=== PATIENT | male | born 1955 | race Caucasian/White ===

== ENCOUNTER → 2019-11-18 | Outpatient (CLI) | payer OTHER ==
[~2019-11-18] MED LIST: HUMALOG100 UNIT/1 SUBQ; LEVEMIR100 UNIT/2 SUBQ
== END ==
LOC: SJCVC 10:07
PROVIDERS: ATTEND Internal Medicine Cardiovascular Disease
DX: R07.9 Chest pain, unspecified (principal); E13.9 Other specified diabetes mellitus without complications; I42.9 Cardiomyopathy, unspecified; I10 Essential (primary) hypertension; E78.5 Hyperlipidemia, unspecified; Z79.899 Other long term (current) drug therapy; Z87.891 Personal history of nicotine dependence

== ENCOUNTER → 2019-11-18 | Outpatient (CLI) | payer OTHER ==
--- NOTE | 2019-11-18 09:29 | 2DMMODE ---
[facility] [place] [address] 2 D/M-MODE ECHOCARDIOGRAM Name: DL GRAYSON Room #: REG MEHDI Demarco#: [id number] Admission: 11/18/19 Attend Phys: Physician not on staff Discharge: Date of : 53 Report #: [id number] THIS REPORT FOR: cc: FAM - No family physician/PCP FAM - No family physician/PCP Paramjit Martini MD [facility] ~ APPROVED REPORT Study performed: 11/18/2019 08:45:26 EXAM: Comprehensive 2D, Doppler, and color-flow Echocardiogram Patient Location: Out-Patient Status: routine BSA: 1.96 HR: 77 bpm BP: 140/100 mmHg Rhythm: NSR Other Information Study Quality: Good Indications Atherosclerotic heart disease. Chest pains, short of breath. 2D Dimensions RVDd: 37.34 mm IVSd: 12.91 (7-11mm) LVOT Diam: 20.23 (18-24mm) LVDd: 53.79 mm PWd: 10.25 (7-11mm) Ascending Ao: 32.75 (22-36mm) LVDs: 46.11 (25-40mm) Aortic Root: 35.76 mm Volumes Left Atrial Volume (Systole) Single Plane 4CH: 40.55 mL Single Plane 2CH: 55.43 mL LA ESV Index: 28.00 mL/m2 Aortic Valve AoV Peak Dalton.: 1.65 m/s AO Peak Gr.: 10.84 mmHg LVOT Max P.28 mmHg AO Mean Gr.: 6.34 mmHg AO V2 Mean: 1.23 m/s LVOT Max V: 0.75 m/s AO V2 VTI: 32.53 cm [facility] [address] [place] [address] 2 D/M-MODE ECHOCARDIOGRAM Name: KENAN,DAVID Room #: REG [facility]#: [id number] Admission: 11/18/19 Attend Phys: Physician not on s Discharge: Date of : 53 Report #: [id number] CANDY Vmax: 1.47 cm2 Mitral Valve E/A Ratio: 1.6 MV Decel. Time: 132.60 ms MV E Max Dalton.: 0.78 m/s MV A Dalton.: 0.50 m/s MV PHT: 38.45 ms IVRT: 86.51 ms Pulmonary Valve PV Peak Dalton.: 0.76 m/s PV Peak Gr.: 2.30 mmHg Pulmonary Vein P Vein S: 0.30 m/s P Vein D: 0.55 m/s P Vein S/D Ratio: 0.55 Tricuspid Valve RAP Estimate: 10.00 mmHg Left Ventricle The left ventricle is normal size. Regional wall motion abnormalities are noted. Mild septal hypertrophy is present. Left ventricular systolic function is moderate to severely decreased.worse inapical segment LVEF is 30%. Moderate diastolic dysfunction is present. Right Ventricle The right ventricle is normal size. Right ventricle is mildly hypokinetic. Atria The left atrium size is normal. The right atrium size is normal. Aortic Valve Aortic valve is moderately calcified. Mild aortic regurgitation. Mild to moderate aortic stenosis. CANDY by continuity equation is 1.5cm2. Mitral Valve The mitral valve is normal in structure. Mild mitral regurgitation. Tricuspid Valve [facility] [address] [place] [address] 2 D/M-MODE ECHOCARDIOGRAM Name: DL GRAYSON Room #: REG [facility].#: [id number] Admission: 11/18/19 Attend Phys: Physician not on s Discharge: Date of : 53 Report #: [id number] The tricuspid valve is normal in structure. Trace tricuspid regurgitation. Unable to assess PA pressure. Pulmonic Valve The pulmonary valve is normal in structure. Trace pulmonic regurgitation. Great Vessels The ascending aorta is normal in size. IVC is mildly dilated and collapses <50% with inspiration. Pericardium There is no pericardial effusion. <Conclusion> The left ventricle is normal size. Mild septal hypertrophy is present. Left ventricular systolic function is moderate to severely decreased.worse inapical segment LVEF is 30%. Moderate diastolic dysfunction is present. The right ventricle is normal size. The left atrium size is normal. Aortic valve is moderately calcified. Mild aortic regurgitation. Mild to moderate aortic stenosis. CANDY by continuity equation is 1.5cm2. Mild mitral regurgitation. Trace tricuspid regurgitation. Unable to assess PA pressure. IVC is mildly dilated and collapses <50% with inspiration. There is no pericardial effusion. <ELECTRONICALLY SIGNED> By: Paramjit Martini MD, FACC 11/18/19928 8 8 Paramjit Martini MD, FACC /INF
== END ==
LOC: CV 07:57
DX: I11.9 Hypertensive heart disease without heart failure (principal); I08.0 Rheumatic disorders of both mitral and aortic valves; I25.10 Atherosclerotic heart disease of native coronary artery without angina pectoris

== ENCOUNTER → 2019-11-18 | Outpatient (CLI) | payer OTHER | LOC: CAT 08:06 | DX: Z13.6 Encounter for screening for cardiovascular disorders (principal); E78.00 Pure hypercholesterolemia, unspecified; I25.10 Atherosclerotic heart disease of native coronary artery without angina pectoris ==

== ENCOUNTER 2019-11-19 07:49 | Inpatient (IN) | payer OTHER ==
[~2019-11-19] VITALS: Ht 170.2 cm; Wt 88.0 kg
--- NOTE | ~2019-11-19 | D ---
[facility] [place] [place] [address] DISCHARGE SUMMARY Name: DL GRAYSON Room #: 207-P DIS IN M.R.#: [id number] Admission: 11/19/19 Attend Phys: Paramjit Martini MD, Discharge: 11/28/19 Date of : 53 Report #: [id number] THIS REPORT FOR: cc: NEYDA CALDERA Physician not on staff Paramjit Martini MD [facility] ~ THIS REPORT FOR: //name// CC: Paramjit CALDERA Physician staff DATE OF SERVICE: 11/28/2019 HOSPITAL COURSE: The patient is a 64-year-old male who was admitted with accelerating/unstable anginal symptoms. He was subsequently taken to the catheterization lab, which revealed significant 3-vessel coronary artery disease. He had been having accelerating symptoms for 6 months, but was unable to be ____ until recently. Subsequently, then recommended for bypass surgery. He has moderate aortic valve stenosis. The valve has not been replaced. Dr. Ohara ____ CABG x 4 with a SARGENT to an LAD and SVG to diagonal and ramus sequential and a separate SVG to a PDA. He did well postoperatively. His hemoglobin A1c was 7.0. He has been seen by Endocrinology. Up and ambulating, hemodynamically stable. He will be discharged to home. His home medications at discharge will include insulin Lantus 40 units daily, Humalog 12 units t.i.d. a.c., iron, atorvastatin 40, carvedilol 6.25 b.i.d., olmesartan 20 and a baby aspirin. He is to increase his activity slowly as instructed by cardiac rehab. Blood pressure has been well controlled. He will have scheduled followup with myself and Dr. Riddle, also Dr. Ohara's appointment in a week. DISCHARGE DIAGNOSES: 1. Coronary artery disease, severe 3-vessel, status post coronary artery bypass graft as stated above. 2. Moderate ischemic cardiomyopathy of 30%. Expect some improvement from recruitment of myocardium. 3. Diabetes. 4. Hypertension. 5. Hypercholesterolemia. 6. Moderate aortic valve stenosis, calculated 1.5 cm2. We will follow out-patiently. 7. Acute blood loss anemia secondary to above surgery. [address] [address] DISCHARGE SUMMARY Name: DL GRAYSON Room #: 207-P [facility] IN M.R.#: [id number] Admission: 11/19/19 Attend Phys: Paramjit Martini MD, Discharge: 11/28/19 Date of : 53 Report #: [id number] Thank you for asking me to assist in the care of this patient. By: 0920 1028 Paramjit Martini MD, FACC /nt
[2019-11-19] MEDS ORDERED: LEVEMIR100 UNIT/2 SUBQ (07:52)
[2019-11-19] MEDS ORDERED: HUMALOG100 UNIT/1 SUBQ (07:53)
[2019-11-19 08:28] VITALS: BP 136/84
[2019-11-19 08:39] LABS: HEMATOCRIT 45.5 % (42.0-52.0); HEMOGLOBIN 15.3 gm/dL (14.0-18.0); MCH 29.2 pg (26.0-34.0); MCHC 33.7 g/dL (28.0-37.0); MCV 86.7 fL (80.0-100.0); RBC 5.25 mil/uL (4.50-6.00); RDW 13.8 % (10.5-14.5); WBC 6.8 thou/uL (4.0-11.0)
--- NOTE | 2019-11-19 08:53 | EKG ---
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 Development: [facility] : 1955 Requested By: Paramjit Martini Order Number: [id number] MD: Oumar Lenz Measurements Intervals [place] Rate: 71 P: 44 GA: 196 QRS: 71 QRSD: 106 T: 104 QT: 400 QTc: 435 Interpretive Statements Sinus rhythm Inferior infarct, old Nonspecific ST segment abnormality No previous ECG available for comparison Electronically Signed On 11-19-2019 8:53:07 CDT by Oumar Lenz [email or web address] <ELECTRONICALLY SIGNED> By: Oumar Lenz MD, FAC 11/19/1954 1 Oumar Lenz MD, [facility] /EPI
[2019-11-19 09:13] LABS: CALCIUM 8.9 mg/dL (8.5-10.1); CREATININE 1.1 mg/dL (0.7-1.3); POTASSIUM 4.6 mmol/L (3.5-5.1)
[2019-11-19 15:32] LABS: ABSOLUTE NEUTROPHILS 5.5 thou/uL (1.4-8.2); BASOPHILS 0.6 % (0.0-2.0); EOSINOPHILS 0.9 % (0.0-3.0); HEMATOCRIT 44.7 % (42.0-52.0); LYMPHOCYTES 27.5 % (24.0-44.0); MCH 28.8 pg (26.0-34.0); MCHC 33.5 g/dL (28.0-37.0); MONOCYTES 6.6 % (1.0-8.0); PLATELET COUNT 211 thou/uL (150-400); POLYS 64.4 % (36.0-66.0); RDW 13.9 % (10.5-14.5); WBC 8.5 thou/uL (4.0-11.0)
[2019-11-19 15:40] LABS: CALCIUM 8.6 mg/dL (8.5-10.1); CREATININE 1.3 mg/dL (0.7-1.3); POTASSIUM 4.8 mmol/L (3.5-5.1)
[2019-11-19 15:46] LABS: ALBUMIN 3.4 g/dL (3.4-5.0); TOTAL BILIRUBIN 0.7 mg/dL (0.2-1.0)
[2019-11-19 15:47] LABS: APTT 25.3 Seconds (24.5-32.8); INR 1.1; PROTIME 10.8 Seconds (9.3-11.4)
--- NOTE | 2019-11-19 16:31 | CATHLAB ---
[facility] [place] [address] INVASIVE PROCEDURE REPORT Name: DL GRAYSON Room #: 207-P ADM IN M.R.#: [id number] Admission: 11/19/19 Attend Phys: Paramjit Martini MD, Discharge: Date of : 53 Report #: [id number] THIS REPORT FOR: cc: NEYDA CALDERA Physician not on staff Paramjit Martini MD [facility] ~ ADDENDUM APPROVED REPORT Study performed: 11/19/2019 09:04:05 Patient Details Patient Status: Out-Patient Room #: The patient is a 64 year-old male Event Personnel Paramjit Martini Automatic Maintainer, Lona Calderon RTR, PROGRAM MANAGER SLP Monitor, Narendra Ruiz RN RN, Qian Gan RTR Scrub Procedures Performed Art Access - R femoral artery* Edward Access - R femoral vein Right and Left Heart Cath w/or w/o Coronarie [id number] [facility] Aortogram Abdominal Peripheral Angio 172527 Hemostasis w/ Mynx 55488 Initial Mod Sed Same Phys/QHP Gr5y 205232 98724 Mod Sed Same Phys/QHP Ea 389897 Indication Dyspnea, Positive stress test, Chest pain Procedure Narrative The Right Groin^ was infiltrated with 1% Lidocaine subcutaneous anesthesia. A PINNACLE 6FR Sheath #[id number] sheath was inserted into the RFA. Coronary angiography was performed using coronary diagnostic catheters. The right coronary system was accessed and visualized with a JR4 catheter. The left coronary system was accessed and visualized with a JL4 catheter. The left ventricle was accessed and visualized with a PIGTAIL catheter. Left ventriculogram was performed in 30 degree projection. An aortogram of the abdominal aorta was performed. Closure device was deployed with a 6 Fr MYNXGRIP 6/7F #[id number]. The patient tolerated the procedure well and there were no complications associated with the procedure. There was no hematoma. Intraoperative Conscious Sedation Sedation start time: 09:33 Case end Time: [facility] [address] [place] [address] INVASIVE PROCEDURE REPORT Name: KENANDL HERNÁNDEZ Room #: 207-P [facility] IN .R.#: [id number] Admission: 11/19/19 Attend Phys: Paramjit Martini, Discharge: Date of : 53 Report #: [id number] 10:27 Fentanyl 100 mcg Versed 2 mg Fluoro Time: 2.10 minutes Dose: DAP 6158.90 cGycm2 727 mGy Contrast Type and Amount: Visipaque 95 ml Hemodynamics The right atrial mean pressure is 16 mmHg. The right ventricular pressure is 50/12 mmHg. The pulmonary artery pressure is 51/25 mmHg with a mean of 36 mmHg. The mean pulmonary capillary wedge pressure is 25 mmHg. The aortic pressure is 143/79 mmHg with a mean of 107 mmHg. The left ventricular pressure is 138/17 mmHg with a mean of mmHg. The left ventricular end diastolic pressure is 29 mmHg. The cardiac output using thermo method is 3.65 L/min. The cardiac index using thermo method is 1.87 L/min/m2. Conclusion 1. Successful right heart catheterization with cardiac output by thermodilution. See above hemodynamics. #2 left main with high-grade distal tapered narrowing of 80% giving rise to an LAD and circumflex #3 LAD is high-grade proximal irregularity off the left main of 80 to 90% proximal 70-80 and moderate disease distally. Diagonal branches intact with mild irregularities. Extensive septal senior engineering technician system filling the occluded RCA distally #4 ramus branch moderately diseased off of the left main. #5 circumflex OM high-grade ostial disease and minimal distribution in the OM system relatively small caliber. #6 proximal RCA occlusion looks to be a chronic total calcified vessel. There is a large posterior lateral branch that is filled via the left system. PDA looks to be minimally filled via the left system. #7 normal left jugular size with a near akinetic inferior wall and least inferior base to mid inferior wall EF 30 to 35% range #8 abdominal aortogram revealing an intact abdominal aorta non-aneurysmal and widely patent. Single bilateral renal arteries widely patent. Recommendations and plan: Needs aggressive diuresis. Revascularization by bypass would seem the only option here. Possibly to LAD diagonal ramus and posterior lateral branch. Will [facility] [address] [place] [place] [address] INVASIVE PROCEDURE REPORT Name: KENANDL Room #: 207-P [facility] IN M.R.#: [id number] Admission: 11/19/19 Attend Phys: Paramjit Martini, Discharge: Date of : 53 Report #: [id number] admit to CCU for diuresis and CV surgical consultation. Patient has accelerating/unstable angina and component of heart failure. <ELECTRONICALLY SIGNED> By: Paramjit Martini MD, FACC 11/19/191630 30 30 Paramjit Martini MD, FACC /INF
[2019-11-19 17:03] VITALS: BP 147/95
--- NOTE | 2019-11-19 17:13 | NUR ---
PT. ARRIVED AT FLOOR AFTER 1530; AOX4; OFF OF BED REST; R. GROIN SIDE C/D/I AT ARRIVAL; EDUCATED ABOUT HOLDING PRESSURE WHEN COUGHING OR LAUGHING TO HARD; EDUCATED ABOUT CALLING IF NOTICING BLEDDING OR SWELLING; [facility]; EDUCATED ABOUT FALL PRECAUTIONS & ABLE TO AMBULATE WITHIN THE FLOOR, BUT LEAVING THE UNIT; WEAR MASK WHILE AMBULATING IN HOLLWAY; [facility]; EDUCATED ABOUT VISITOR POLICIES TO & PT; [facility]; SR ON THE MONITOR; ADMISSION PERFORMED; NOTIFIED ABOUT URINE SAMPLE; [facility]; DR. ULLOA NOTIFIED OF CONSULT; ASSESSMENT CHARGED; FOLLOWING POC; WILL PASS ON REPORT;
[2019-11-19 19:13] LABS: URINE BILIRUBIN NEGATIVE (Negative); URINE BLOOD NEGATIVE (Negative); URINE CLARITY CLEAR; URINE COLOR YELLOW; URINE GLUCOSE-RANDOM* NEGATIVE (Negative); URINE KETONES NEGATIVE (Negative); URINE LEUKOCYTES-REFLEX NEGATIVE (Negative); URINE NITRITE-REFLEX NEGATIVE (Negative); URINE PROTEIN (DIPSTICK) NEGATIVE (Negative); URINE SPECIFIC GRAVITY 1.015 (1.005-1.035); URINE UROBILINOGEN 0.2 E.U./dl (0.2-1.0)
[2019-11-19 20:28] VITALS: BP 138/87
[2019-11-20 00:36] VITALS: BP 138/78
--- NOTE | 2019-11-20 00:55 | NUR ---
ASSESSMENTS CHARTED, MEDS CHARTED GIVEN. PATIENT RESTING IN BED DURING SHIFT. UP AT LEA IN ROOM. ALERT AND ORIENTED, ON ROOM AIR, ACCU CHECK AT HS WAS 143, LANTUS WAS GIVEN, NO NOVALOG WAS REQUIRED. PATIENT WAS IN YOUTH CARE SPECIALIST TODAY NO INTERVENTIONS WERE DONE, 100% OCCLUSION FOUND. DR NICHOLAS CONSULTED FOR CABG SCHEDULED ON FRIDAY. PATIENT GETTING PREPROCEDURE TESTS COMPLETED. DENIED PAIN. PATIENT NEEDS REINFORCEMENT ABOUT CAD AND UPCOMING PROCEDURE. FALL PRECAUTIONS IN PLACE DURING SHIFT.
[2019-11-20 05:25] VITALS: BP 152/84
[2019-11-20 08:05] VITALS: BP 151/80
--- NOTE | 2019-11-20 09:55 | HC ---
[facility] [place] [address] CONSULTATION Name: DL GRAYSON Room #: 207-P ADM IN M.R.#: [id number] Admission: 11/19/19 Attend Phys: Paramjit Martini MD, Discharge: Date of : 53 Report #: [id number] THIS REPORT FOR: cc: NEYDA CALDERA Physician not on staff Dara Riddle MD ~ CC: Paramjit CALDERA Physician staff DATE OF SERVICE: 11/19/2019 ENDOCRINE CONSULTATION NOTE CONSULTING PHYSICIAN: Dr. Martini. REASON FOR CONSULTATION: Type 2 diabetes mellitus. HISTORY OF PRESENT ILLNESS: This is a 64-year-old male patient whose medical background is significant for multiple medical issues including hypertension, hyperlipidemia, and type 2 diabetes mellitus. The patient has been diagnosed with type 2 diabetes mellitus over 15 years ago and his most recent regimen had consisted of a combination of Levemir insulin 60 units at bedtime as well as Humalog insulin 10-12 units t.i.d. a.c. The patient describes a fairly aggressive approach to his blood glucose control, whereby he would almost always dose extra amounts of Humalog at bedtime to get his blood glucose value closer to 100. He reports that his most recent hemoglobin A1c was 6.1%, but was not sure exactly as to when that was done. He reports being frequently in the 60-90 mg/dL range and that he feels well when that happens. He rarely will get above 200 mg/dL. The patient believes that he has a slight degree of eye abnormality as per his senior care provider's report during his most recent eye exam. He is not aware of issues of chronic kidney disease or diabetic neuropathy. The patient is known to have hyperlipidemia and is treated with Livalo. He is also hypertensive. More recently, the patient has been dealing with intermittent chest pain on exertion and dyspnea on exertion which had him pursue further cardiac evaluation. The patient was found to have 3-vessel coronary artery disease with ischemic cardiomyopathy and ejection fraction of 30% and right ventricular hypokinesis and moderate aortic stenosis. The patient was admitted for stabilization and is being planned for a possible CABG on Friday. REVIEW OF SYSTEMS: [facility] [address] [place] [address] CONSULTATION Name: DL GRAYSON Room #: 207-P ADM IN M.R.#: [id number] Admission: 11/19/19 Attend Phys: Paramjit Martini MD, Discharge: Date of : 53 Report #: [id number] CONSTITUTIONAL: Intermittent issues with fatigue, tiredness, no weight changes, fever or chills. HEENT: Negative for sore throat, sinus pain, ear drainage. PULMONARY: Dyspnea on exertion. No cough or hemoptysis. CARDIAC: Chest pain off and on getting more frequent over the past 2 months, dyspnea on exertion. GASTROINTESTINAL: Negative for abdominal pain, nausea, vomiting or changes in bowel movement frequency. NEUROLOGY: Negative for loss of consciousness, headaches or seizure activity. Otherwise, review of systems is noncontributory other than those mentioned in HPI. PAST MEDICAL HISTORY: 1. Type 2 diabetes mellitus. 2. Hypertension. 3. Hyperlipidemia. OUTPATIENT MEDICATIONS: Levemir insulin 60 units q.p.m., Humalog insulin 10 units t.i.d. a.c. in addition to incremental scale injections including at bedtime, Livalo 4 mg daily. ALLERGIES: No known drug allergies. FAMILY HISTORY: As noted for multiple family members with type 2 diabetes mellitus. SOCIAL HISTORY: He is . Denies use of tobacco, alcohol or illicit drugs. PHYSICAL EXAMINATION: GENERAL: male patient who is not in apparent pain or distress. VITAL SIGNS: Blood pressure is 136/84 mmHg, heart rate is 74 beats per minute, respirations 13 per minute, temperature 36.6 degrees Celsius. CONSTITUTIONAL: The patient is lying in bed, appears comfortable, not in apparent distress. HEENT: Anicteric sclerae. Intact extraocular motions. NECK: Supple, without JVD, carotid bruits or lymphadenopathy. I do not appreciate thyromegaly. CHEST: Clear to auscultation with good air entry bilaterally. No wheeze or crackles and with resonant percussion noted over both lung nelson. HEART: Regular rate and rhythm without murmurs or gallops. ABDOMEN: Soft, lax, no tenderness, no guarding, active bowel sounds. EXTREMITIES: Lower extremity exam is negative for ankle edema, skin breaks, ulcerations. Pedal pulses are appreciated. NEUROLOGIC: Awake, alert and oriented to place and person. The remainder of examination is nonfocal. [address] [address] CONSULTATION Name: DL GRAYSON Room #: 207-P ADM IN M.R.#: [id number] Admission: 11/19/19 Attend Phys: Paramjit Martini MD, Discharge: Date of : 53 Report #: [id number] PSYCHIATRIC: Pleasant, interactive. Normal mood and affect. Normal thought process. LABORATORY RESULTS: Blood glucose was documented as 157 mg/dL a little while ago. Sodium 142, potassium 4.6, chloride 106, CO2 of 26, anion gap 10, BUN ____, creatinine 1.1, calcium 8.9. White blood count 8.5, hemoglobin 15, hematocrit 44.7, platelets 211. Hemoglobin A1c was ordered and is pending. ASSESSMENT AND PLAN: 1. Type 2 diabetes mellitus. As noted above, the patient has adopted a fairly aggressive approach to glycemic control at home by which his reported hemoglobin A1c is significantly below the desired target at 6.1% with documentations of frequent glycemic values in the 60-90 range. The patient was counseled extensively about the importance of avoiding hypoglycemia and about adopting a blood glucose target of 100-160 mg/dL along the same lines. I also urged him to avoid bedtime dosing of incremental Humalog insulin to avoid nocturnal hypoglycemia. During this hospital stay, I would like to maintain the patient on a combination of Lantus insulin 30 units q.p.m. in addition to Humalog insulin 10 units t.i.d. a.c., while maintaining support with Humalog supplemental scale low intensity as we monitor his blood glucose a.c. and at bedtime. Preoperatively, I would like to keep the patient between 100 and 180 mg/dL. In the immediate perioperative period for his upcoming CABG, a more suitable range would be that of 100-140 mg/dL for optimal healing of his sternotomy and avoiding wound infections. It might be best to utilize IV insulin therapy at that time. Long-term, the patient could certainly stand to benefit from the addition of an SGLT2 inhibitor to benefit the issues of CAD and cardiomyopathy. A GLP-1 analog might be considered as well, but only secondary to SGLT2 inhibitors in the presence of cardiomyopathy. 2. Hypertension. The patient's level of blood pressure control is adequate. He is currently maintained on a combination of carvedilol and olmesartan. He is to continue with the same. 3. Hyperlipidemia. The patient is maintained on atorvastatin therapy and tolerates it well, he is to continue with the same. 4. Coronary artery disease. As noted above, the patient has findings that are consistent with severe CAD, cardiomyopathy, ejection fraction of 30%. He is being prepared for likely CABG on 11/22/2019. I counseled the patient about the need to achieve and maintain optimal glycemic, lipids, and blood pressure control rn long term care to decrease the risk of CVD morbidity and mortality. Additionally, the inclusion of antidiabetic agents that are geared towards reducing his CVD morbidity and mortality would be desirable eventually, i.e., SGLT2 inhibitors. [address] [address] CONSULTATION Name: DL GRAYSON Room #: 207-P [facility] IN M.R.#: [id number] Admission: 11/19/19 Attend Phys: Paramjit Martini MD, Discharge: Date of : 53 Report #: [id number] I certainly appreciate this consultation by Dr. Martini. <ELECTRONICALLY SIGNED> By: Dara Riddle MD 11/20/19 0955 1543 1601 Dara Riddle MD /nt
--- NOTE | 2019-11-20 11:21 | NUR ---
CONSULT [id number] COMPLETED BY THIS CIGAR INSPECTOR. iT WASA A VERY MEANINGFUL VISIT.
[2019-11-20 11:50] VITALS: BP 144/69
[2019-11-20 15:11] VITALS: BP 136/71
--- NOTE | 2019-11-20 17:04 | NUR ---
ASSESSMENT CHARTED. PT ALERT AND ORIENTED. VSS. DENIED HAVING PAIN OR DISCOMFORT. UP ADLIB IN THE ROOM. NO CARDIAC OR RESPIRATORY DISTRESS NOTED. WILL CONTINUE TO MONITOR.
[2019-11-20 20:30] VITALS: BP 148/71
--- NOTE | 2019-11-20 23:52 | NUR ---
ASSESSMENTS CHARTED, MEDS CHARTED GIVEN. PATIENT UP AND ABOUT IN HIS ROOM AND IN THE HALLS. ALERT AND ORIENTED, LUNGS CLEAR, ACCU CHECKS AT HS. DOSED GIVEN. UP AT LEA, AMBULATING IN HALLS. PATIENT STILL TRYING TO ASSIMULATE EVERYTHING INVOLVED WITH A CABG. FALL PRECAUTIONS IN PLACE DURING SHIFT. DENIED PAIN.
[2019-11-21 05:50] VITALS: BP 142/76
[2019-11-21 07:41] VITALS: BP 131/80
[2019-11-21 11:43] VITALS: BP 137/87
[2019-11-21 15:54] VITALS: BP 137/83
--- NOTE | 2019-11-21 17:21 | NUR ---
ASSESSMENT CHARTED. PT ALERT AND ORIENTED. VSS. DENIED HAVING PAIN OR DISCOMFORT. NO CARDIAC DISTRESS NOTED. SR ON TELE. NPO AFTER MIDNIGHT FOR CABG IN AM. NEW ORDERS NOTED. WILL CONTINUE TO MONITOR.
[2019-11-21 20:16] VITALS: BP 160/93
[2019-11-22] VITALS (7 sets, daily range): BP systolic 131–159; BP diastolic 71–95
--- NOTE | 2019-11-22 00:39 | NUR ---
ASSESSMENTS CHARTED, MEDS CHARTED GIVEN. PATIENT UP AT LEA IN ROOM AND ON UNIT. CONCERNED ABOUT TOMORROWS SURGERY. SHOWER TAKEN AND CHLORAHEXADINE WIPES USED. ACCU CHECK AT HS 262, DOSED CHARTED. PATIENT TO REPEAT SHOWER IN AM IN PREP FOR CABG. FALL PRECAUTIONS IN PLACE DURING SHIFT. DENIED PAIN.
--- NOTE | 2019-11-22 15:54 | NUR ---
met with patient who resides at home with spouse in independent home. He is retired. Independent with adls, no hx of care. Tenative plan for CABG in am. Patient ambulating independently on unit. Casemgt following.
--- NOTE | 2019-11-22 16:53 | NUR ---
PT TO HAVE PLANNED CCABGE IN AM. PT AMBULATED HALLS AND NO COMPLAINTS. WILL CONTINUE TO ASSESS.
--- NOTE | 2019-11-23 03:39 | NUR ---
ASSESSMENT DOCUMENTED.PT BEEN RESTING IN NO ACUTE DISTRESS.DENIES CHEST PAIN.UP AD LEA IN THE ROOM AND HALLWAYS.POC FOR CABG X4 IN THE MORNING.NPO AFTER MIDNOC.PT DENIES ANY CONCERNS OR QUESTIONS REGARDING SURGERY.WILL CONT TO MONITOR PER POC.
[2019-11-23 06:18] VITALS: BP 137/81
[2019-11-23 06:20] VITALS: BP 139/84
[2019-11-23 13:22] LABS: MCH 29.3 pg (26.0-34.0); RBC 3.39 mil/uL (4.50-6.00); RDW 13.1 % (10.5-14.5); WBC 8.9 thou/uL (4.0-11.0)
[2019-11-23 13:24] LABS: HEMATOCRIT 29.2 % (42.0-52.0); HEMOGLOBIN 9.9 gm/dL (14.0-18.0)
[2019-11-23 13:33] LABS: APTT 28.9 Seconds (24.5-32.8); INR 1.6; PROTIME 16.2 Seconds (9.3-11.4)
[2019-11-23 13:59] LABS: POC BE 2 mmol/L (-2.0 to +3.0); POC CA IONIZED 4.9 mg/dL (4.5-5.3); POC GLUCOSE 141 mg/dL (70-99); POC HEMOGLOBIN 14.3 g/dL (14.0-18.0); POC POTASSIUM 4.6 mmol/L (3.5-5.1); POC SODIUM 139 mmol/L (136-145); POC pCO2 38.6 mmHg (35.0-45.0); POC pH 7.436 (7.360-7.450)
[2019-11-23 14:00] LABS: POC BE 2 mmol/L (-2.0 to +3.0); POC CA IONIZED 4.5 mg/dL (4.5-5.3); POC GLUCOSE 100 mg/dL (70-99); POC HCO3 27.2 mmol/L (22.0-26.0); POC HEMOGLOBIN 11.2 g/dL (14.0-18.0); POC POTASSIUM 4.3 mmol/L (3.5-5.1); POC SODIUM 140 mmol/L (136-145); POC pCO2 44.7 mmHg (35.0-45.0); POC pH 7.393 (7.360-7.450)
[2019-11-23 14:00] LABS: POC BE 2 mmol/L (-2.0 to +3.0); POC CA IONIZED 5.8 mg/dL (4.5-5.3); POC GLUCOSE 93 mg/dL (70-99); POC HEMOGLOBIN 9.5 g/dL (14.0-18.0); POC POTASSIUM 4.1 mmol/L (3.5-5.1); POC SODIUM 140 mmol/L (136-145); POC pH 7.405 (7.360-7.450)
[2019-11-23 14:00] LABS: POC BE -1 mmol/L (-2.0 to +3.0); POC CA IONIZED 5.2 mg/dL (4.5-5.3); POC GLUCOSE 96 mg/dL (70-99); POC HCO3 22.9 mmol/L (22.0-26.0); POC HEMOGLOBIN 9.5 g/dL (14.0-18.0); POC POTASSIUM 4.1 mmol/L (3.5-5.1); POC SODIUM 141 mmol/L (136-145); POC pCO2 33.7 mmHg (35.0-45.0); POC pH 7.441 (7.360-7.450)
[2019-11-23 14:00] LABS: POC BE 0 mmol/L (-2.0 to +3.0); POC CA IONIZED 4.8 mg/dL (4.5-5.3); POC GLUCOSE 121 mg/dL (70-99); POC HCO3 24.3 mmol/L (22.0-26.0); POC HEMOGLOBIN 12.9 g/dL (14.0-18.0); POC POTASSIUM 4.3 mmol/L (3.5-5.1); POC SODIUM 139 mmol/L (136-145); POC pH 7.426 (7.360-7.450)
[2019-11-23 14:00] LABS: POC BE 1 mmol/L (-2.0 to +3.0); POC CA IONIZED 4.6 mg/dL (4.5-5.3); POC GLUCOSE 88 mg/dL (70-99); POC HCO3 26.3 mmol/L (22.0-26.0); POC HEMOGLOBIN 10.9 g/dL (14.0-18.0); POC POTASSIUM 4.4 mmol/L (3.5-5.1); POC SODIUM 142 mmol/L (136-145); POC pH 7.394 (7.360-7.450)
[2019-11-23 14:00] LABS: POC BE 1 mmol/L (-2.0 to +3.0); POC CA IONIZED 4.5 mg/dL (4.5-5.3); POC GLUCOSE 86 mg/dL (70-99); POC HCO3 25.7 mmol/L (22.0-26.0); POC HEMOGLOBIN 9.5 g/dL (14.0-18.0); POC POTASSIUM 4.2 mmol/L (3.5-5.1); POC SODIUM 141 mmol/L (136-145); POC pCO2 40.1 mmHg (35.0-45.0); POC pH 7.415 (7.360-7.450)
[2019-11-23 14:00] LABS: POC BE 1 mmol/L (-2.0 to +3.0); POC CA IONIZED 4.6 mg/dL (4.5-5.3); POC GLUCOSE 83 mg/dL (70-99); POC HEMOGLOBIN 10.5 g/dL (14.0-18.0); POC POTASSIUM 4.4 mmol/L (3.5-5.1); POC SODIUM 143 mmol/L (136-145); POC pCO2 43.1 mmHg (35.0-45.0); POC pH 7.388 (7.360-7.450)
[2019-11-23 14:30] LABS: HEMATOCRIT 39.1 % (42.0-52.0); MCH 28.5 pg (26.0-34.0); MCHC 33.5 g/dL (28.0-37.0); MCV 85.2 fL (80.0-100.0); RBC 4.59 mil/uL (4.50-6.00); RDW 13.6 % (10.5-14.5); WBC 14.8 thou/uL (4.0-11.0)
[2019-11-23 14:34] LABS: HEMOGLOBIN 13.1 gm/dL (14.0-18.0)
[2019-11-23 14:45] LABS: CALCIUM 8.1 mg/dL (8.5-10.1); MAGNESIUM 2.4 mg/dL (1.8-2.4); POTASSIUM 4.4 mmol/L (3.5-5.1)
[2019-11-23 14:46] LABS: BE(vivo) -4.5 mmol/L (-2 to +3); HCO3 19.3 mmol/L (22.0-26.0); PCO2 32.1 mmHg (35.0-45.0); PO2 90.9 mmHg (80.0-100.0); pH 7.397 (7.360-7.450)
[2019-11-23 14:46] LABS: APTT 28.7 Seconds (24.5-32.8); INR 1.3; PROTIME 13.1 Seconds (9.3-11.4)
[2019-11-23 15:58] VITALS: BP 122/66
[2019-11-23 16:57] LABS: BE(vivo) -4.7 mmol/L (-2 to +3); HCO3 19.4 mmol/L (22.0-26.0); PCO2 33.1 mmHg (35.0-45.0); PO2 108.9 mmHg (80.0-100.0); pH 7.386 (7.360-7.450)
--- NOTE | 2019-11-23 16:58 | NUR ---
PT ARRIVED ON THE UNIT @ 1415 WITH THE ASSIST OF NURSING STAFF, DR FOREMAN (ANESTHESIOLOGIST), DR NICHOLAS (CTS) AND OCHOA CARBONE ([facility]). PT ARRIVED ON PROPOFOL AND DOBUTAMINE GTT. INITIAL ABG CALLED TO DR NICHOLAS, FIO2 DECREASED FROM 60 TO 50. PT NOW OFF ALL GTTS EXCEPT IVF WITH MAG. CPAP @ 1615, ABG DRAWN WILL REPORT TO DR NICHOLAS AND AWAIT ORDERS.
[2019-11-23 18:15] LABS: CALCIUM 8.1 mg/dL (8.5-10.1); POTASSIUM 5.1 mmol/L (3.5-5.1)
[2019-11-23 19:10] VITALS: BP 135/68
[2019-11-23 20:00] VITALS: BP 118/78
[2019-11-23 22:00] VITALS: BP 117/71
[2019-11-24] VITALS (11 sets, daily range): BP systolic 93–124; BP diastolic 55–72
[2019-11-24 05:41] LABS: HEMATOCRIT 34.8 % (42.0-52.0); HEMOGLOBIN 11.7 gm/dL (14.0-18.0); MCH 29.4 pg (26.0-34.0); MCHC 33.6 g/dL (28.0-37.0); MCV 87.5 fL (80.0-100.0); RBC 3.97 mil/uL (4.50-6.00); RDW 13.7 % (10.5-14.5); WBC 10.7 thou/uL (4.0-11.0)
[2019-11-24 05:44] LABS: MAGNESIUM 2.1 mg/dL (1.8-2.4)
[2019-11-24 06:12] LABS: POTASSIUM 3.8 mmol/L (3.5-5.1)
--- NOTE | 2019-11-24 08:25 | EKG ---
[facility] [place] [address] ELECTROCARDIOGRAM REPORT Name: DL GRAYSON Room #: 248-P ADM IN M.R.#: [id number] Admission: 11/19/19 Attend Phys: Paramjit Martini MD, Discharge: Date of : 53 Report #: [id number] THIS REPORT FOR: cc: NEYDA CALDERA Physician not on staff Oumar Lenz MD [facility] THIS REPORT FOR: //name// 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 [employer]: Rob CRUZ : 1955 Requested By: Markus Fu Order Number: [id number] MD: Oumar Lenz Measurements Intervals [place] Rate: 85 P: 70 FL: 212 QRS: 61 QRSD: 103 T: QT: 382 QTc: 455 Interpretive Statements Sinus rhythm Borderline prolonged FL interval Anterior infarct, old Nonspecific T abnormalities, lateral leads Compared to ECG 11/19/2019 08:32:02 No significant change was found Electronically Signed On 11-24-2019 8:25:08 CDT by Oumar Lenz [email or web address] <ELECTRONICALLY SIGNED> By: Oumar Lenz MD, [facility] 11/24/1925 155 155 Oumar Lenz MD, [facility] /EPI
--- NOTE | 2019-11-24 08:31 | NUR ---
Nutrition: Pt POD [address] will followup when out of ICU/closer to D/C to determine education needs.
--- NOTE | 2019-11-24 08:40 | EKG ---
[facility] [place] [address] [place] [address] ELECTROCARDIOGRAM REPORT Name: DL GRAYSON Room #: 248-P ADM IN M.R.#: [id number] Admission: 11/19/19 Attend Phys: Paramjit Martini MD, Discharge: Date of : 53 Report #: [id number] THIS REPORT FOR: cc: NEYDA CALDERA Physician not on staff Oumar Lenz MD [facility] ~ THIS REPORT FOR: //name// [facility] Test Date: 2019-11-24 Test Time: 07:39:48 Pat Name: DL GRAYSON Department: Room: 248 P Gender: M Cloth Hauler: NESTOR : 1955 Requested By: Markus Fu Order Number: [id number] MD: Oumar Lenz Measurements Intervals [place] Rate: 98 P: 124 OK: 204 QRS: 22 QRSD: 99 T: 135 QT: 340 QTc: 435 Interpretive Statements Sinus rhythm Inferior infarct, possibly acute Poor R wave progression Artifact in lead(s) Compared to ECG 11/23/2019 15:52:43 Minimal inferior repolarization abnormality is now present Electronically Signed On 11-24-2019 8:40:01 CDT by Oumar Lenz [email or web address] <ELECTRONICALLY SIGNED> By: Oumar Lenz MD, [facility] 11/24/19 0840 Oumar Lenz MD, [facility] /EPI
--- NOTE | 2019-11-24 15:59 | NUR ---
Received consult for discharge planning. DESTINY reviewed chart. Pt is POD#1 CABG x 4. Pt is on 3L of O2 via NC. Therapy has worked with pt today. DESTINY placed call to pt's room. No answer. DESTINY will follow up with pt at a later time to discuss discharge planning. Pt is from home with his . Independent with ADLS. Goal is to return home. DESTINY is following to assist as needed with discharge planning.
--- NOTE | 2019-11-24 19:08 | NUR ---
ASSUMED PATIENT CARE AT 0700; PATIENT AWAKE, ALERT, LYING IN BED. HR 80s, BP 115-120s/60s; RR 15-20, SPO2 98% ON 3L NC. NADYA PULLED PER ORDERS; PATIENT UP TO THE CHAIR - TOLERATED CHAIR X 8 HRS; UP AND MATCHING IN PLACE; OCCASIONAL EPISODES OF EMESIS; PAIN MANAGED WITH MEDS PER E-MAR. ON RM AIR AT 1600, SPO2 >95%. MINIMAL UOP, DR. NICHOLAS NOTIFIED, WILL INITIATE NS AT 75ML/HR. CT OUTPUT <130 X 12 HRS. WILL CONTINUE TO MONITOR.
[2019-11-25] VITALS (12 sets, daily range): BP systolic 110–168; BP diastolic 63–128
[2019-11-25 05:39] LABS: HEMATOCRIT 32.6 % (42.0-52.0); HEMOGLOBIN 11.4 gm/dL (14.0-18.0)
--- NOTE | 2019-11-25 05:51 | NUR ---
ASSUMED CARE OF PATIENT AT 1900. VSS, STATES PAIN IS ABOUT A 3. REFUSING PAIN MEDS THROUGH THE NIGHT BECAUSE HE WAS WORRIED ABOUT NAUSEA. FORGETFUL AND SLIGHTLY CONFUSED AT TIMES. UP TO CHAIR THIS AM. ALEXY WRAPS REMOVED, PACER WIRES CAPPED. NS STILL INFUSING WITH IMPROVED URINE OUTPUT. PROGRESSING TOWARDS POC GOALS.
--- NOTE | 2019-11-25 15:47 | HC ---
[facility] [place] [address] CONSULTATION Name: DL GRAYSON Room #: 248-P ADM IN M.R.#: [id number] Admission: 11/19/19 Attend Phys: Paramjit Martini MD, Discharge: Date of : 53 Report #: [id number] THIS REPORT FOR: cc: NEYDA CALDERA Physician not on staff Melquiades Ohara MD ~ CC: Paramjit CALDERA Physician staff DATE OF SERVICE: 11/19/2019 REFERRING PHYSICIAN: We were asked by Dr. Martini to see this patient. HISTORY OF PRESENT ILLNESS: The patient is a 64-year-old with coronary artery disease. The patient presents with at least 6-month history of exertional chest pain. The patient is a diabetic. The patient describes having angina on exertion; exertion consisting of walking for a typical hours' worth of exercise twice a day. We note that cardiac echo revealed ejection fraction of 30% with mild aortic incompetence and ywgp-yi-whaxgfwf aortic stenosis with a calculated area of 1.5 cm2. The patient has a history of diabetes mellitus (he claims type 1, but this sounds more like type 2). Cardiac catheterization demonstrates a total occlusion of the right coronary, 70% left main stenosis and 80% proximal LAD and 90% circumflex stenosis. The patient denies smoking. There may be a family history with father having had bypass surgery. Father also had hypertension. The patient states he is treated for dyslipidemia. PAST MEDICAL HISTORY: As mentioned, past history includes hypertension, dyslipidemia, and diabetes mellitus on insulin. SOCIAL HISTORY: Denies tobacco use. Does use alcohol. The patient is . REVIEW OF SYSTEMS: GENERAL: No major change in weight or fever. Denies COVID symptoms. EYES: No vision change. HEENT: No headache, no hearing problems, no chronic sinus problems. RESPIRATORY: Denies cough, shortness of breath. CARDIAC: As mentioned, exertional angina. GASTROINTESTINAL: No nausea, vomiting, blood. GENITOURINARY: No urgency, frequency, blood. MUSCULOSKELETAL: No bone or joint pain. SKIN: No rash or infection. [facility] [address] [place] [address] CONSULTATION Name: DL GRAYSON Room #: 248-P [facility] IN M.R.#: [id number] Admission: 11/19/19 Attend Phys: Paramjit Martini MD, Discharge: Date of : 53 Report #: [id number] NEUROLOGIC: No motor or sensory dysfunction. HEMATOLOGIC: No bruisability or bleeding. ENDOCRINE: No goiter, no tremor. PHYSICAL EXAMINATION: VITAL SIGNS: Blood pressure 154/92, heart rate 86. HEENT: No scleral icterus, no arcus. NECK: No mass. I do not hear any bruit. CHEST: Clear to auscultation. HEART: Rhythm regular, no murmur. ABDOMEN: Soft. EXTREMITIES: No clubbing, cyanosis, or edema. SKIN: No rash or infection. MUSCULOSKELETAL: No bone or joint asymmetry or deformity. NEUROLOGIC: No motor or sensory dysfunction. ASSESSMENT AND PLAN: I reviewed the cardiac catheterization findings with the patient and his . I have recommended coronary artery bypass surgery for left main and multivessel disease in the setting of diabetes mellitus. Risks and details of surgery were discussed. Options and alternatives were reviewed. It appears that the patient will be staying in the hospital until we can provide surgical services. I will endeavor to find a reasonable spot on the schedule for the patient. Thank you for the consult. <ELECTRONICALLY SIGNED> By: Melquiades Ohara MD 11/25/19 1547 [id number] [id number] Melquiades Ohara MD /nt
--- NOTE | 2019-11-25 15:47 | O ---
[facility] [place] [address] OPERATIVE REPORT Name: DL GRAYSON Room #: 248-P ADM IN M.R.#: [id number] Admission: 11/19/19 Attend Phys: Paramjit Martini MD, Discharge: Date of : 53 Report #: [id number] THIS REPORT FOR: cc: NEYDA CALDERA Physician not on staff Melquiades Ohara MD ~ CC: Paramjit CALDERA Physician staff DATE OF SERVICE: 11/23/2019 PREOPERATIVE DIAGNOSIS: Coronary artery disease. POSTOPERATIVE DIAGNOSIS: Coronary artery disease. OPERATION: Coronary artery bypass x 4 including left internal mammary artery to left anterior descending artery, saphenous vein to diagonal and ramus and saphenous vein to posterior descending artery and endoscopic harvest left greater saphenous vein. SURGEON: Melquiades Ohara MD HYDRANT SETTER: RAF Ayon. ANESTHESIA: General. INDICATIONS FOR PROCEDURE: The patient is a 64-year-old with coronary artery disease. The patient presents with unstable angina. Catheterization demonstrates severe 3-vessel coronary artery disease including total occlusion of the right coronary and left main stenosis. Left ventricular function mildly reduced at approximately 40%. FINDINGS AND TECHNIQUE: After general anesthesia was established, saphenous vein was harvested and prepared for use as a conduit. Exposure was obtained through median sternotomy. Left internal mammary artery was harvested from chest wall. Pericardial well was made. Cannulation sutures were placed. Heparin was given. Aorta was cannulated. Right atrium was cannulated. Cardioplegia needle was positioned in the aortic root. Retrograde cardioplegic catheter was placed in coronary sinus. Cardiopulmonary bypass was established. Aorta was cross clamped. Antegrade and retrograde cardioplegia were given. Ice was poured into the pericardial well. The heart was stopped. During electromechanical arrest, the distal anastomoses were performed and end-to-side anastomosis was made between vein and the posterior descending artery. This artery was a bit more lateral than expected, but it was adjacent [facility] [address] [place] [address] OPERATIVE REPORT Name: DL GRAYSON Room #: 248-P ADM IN ..#: [id number] Admission: 11/19/19 Attend Phys: Paarmjit Martini MD, Discharge: Date of : 53 Report #: [id number] to the inferior vein along the diaphragmatic surface of the heart. This was diffusely diseased and measured 1.4 mm. Cold cardioplegia was given. I looked at the diaphragmatic surface and could find no other important arteries to bypass. A separate segment of vein was sewn in end-to-side fashion to a relatively large vessel in the ramus territory. This could be either a first marginal or a first diagonal. I looked at the obtuse margin and found a very small artery that I felt was too small for bypass. The ramus itself was diffusely diseased and 1.4 mm vessel. Cold cardioplegia was given. The same segment of vein was sewn in azoh-wr-ajuz fashion to the diagonal and the mid portion of the LAD. This was also diffusely diseased with measured 1.4 mm bypassed. Cold cardioplegia was given. Left internal mammary artery was sewn in end-to-side fashion to the left anterior descending artery. This was also diffusely diseased vessel and it shows the best portion in the mid section of the LAD. This was a 1.5 mm vessel. Cold cardioplegia was given after the anastomosis was checked with both the temperature technique and the Doppler. After the cardioplegia was given, 2 proximal anastomoses were performed. When these were complete, warm retrograde cardioplegia was given followed by warm continuous blood to the coronary sinus. When this infusion was complete, the crossclamp was removed, de-airing maneuvers were performed. The anastomoses were inspected and found to be satisfactory. As the patient warmed, nice cardiac activity resumed, chest tubes and pacing wires were placed. A marker was placed around the proximal anastomoses. When the patient was warm, he was weaned from cardiopulmonary bypass. Venous cannula was removed. Protamine was given, the aortic cannula was removed. Flows were measured in the bypass grafts. When hemostasis was satisfactory, chest was irrigated with antibiotic solution and closed in the usual fashion. The patient was taken to the Intensive Care Unit in good condition having tolerated the procedure well. All counts reported as correct. <ELECTRONICALLY SIGNED> By: Melquiades Ohara MD 11/25/19 1547 30 39 Melquiades Ohara MD /nt
--- NOTE | 2019-11-25 19:14 | NUR ---
ASSUMED PATIENT CARE AT 0700. PATIENT ALERT, AWAKE IN THE CHAIR. MEDIASTINAL CHEST TUBES, BONNER CATHETER, C.L, AND A-LINE REMOVED PER ORDERS. VSS REMAINED STABLE THROUGHOUT SHIFT - PATIENT ON ROOM AIR, HR 80 - 100s, SBP ELEVATED 160s-170s; HOME ANTIHYPERTENSIVES RESUMED PER CARDIOLOGY. AT 1730: PATIENT TRANSFERRED TO CCU BED 207 ON ROOM AIR, SPO2 98%; HR 80s, BP 130s/60s; BELONGINGS INCLUDING PHONE AND MERCHANDISING INTERN SENT WITH PATIENT. CALLED AND UPDATED STATUS AND POC.
--- NOTE | 2019-11-25 19:14 | NUR ---
PT TRANSFERED FROM ICU IN STABLE CONDITION AT 181. CHEST TUBE INTACT TO -20. LIVAN DRESSING INTACT. STERNUM PRECAUTION ENFORCED. REPORT GIVEN TO NOC NURSE.
--- NOTE | 2019-11-26 04:11 | NUR ---
ASSESSMENTS CHARTED, MEDICATIONS CHARTED. PATIENT ARRIVED BACK ON UNIT FROM ICU AFTER CABG X4. PATIENT RESTING IN RECLINER AT START OF SHIFT. PATIENT ON ROOM AIR, ONE CHEST TUBE REMAINS AND PACER WIRES. ACCU CHECK HS 193. MEDS GIVEN BY ANOTHER. LEFT CHEST TUBE DRESSING DRIPPING SERROUS FLUID, REINFORCED DRESSING WITH GAUZE AND ABD. BLOOD IN URINE. PATIENT REFUSED CALCIUM CARBINATE AT 2200. C/O PAIN AT START OF SHIFT. PATIENT NEEDS CONSTANT REMINDER ABOUT STERNAL PRECAUTIONS AND RAISING HIS ARMS ABOVE HIS HEAD.
[2019-11-26 05:12] VITALS: BP 152/92
[2019-11-26 07:58] VITALS: BP 129/88
[2019-11-26 12:30] VITALS: BP 110/66
--- NOTE | 2019-11-26 14:36 | NUR ---
Nutrition: pt seen for LOS. S/P CABG x 4. PMH: CAD, HTN, HLD, DM, ischemic cardiomyopathy. Noted pt was eating 100% of meals prior to surgery on 11/22. Since surgery, states he is being cautious with eating as he doesn't want to overdo it. BG 178-205, A1C 7.0. Endocrinology following. RD discussed diet briefly with pt. Does control carbs at home and avoids processed grains. Familiar with heart healthy guidelines as well and refuses full diet review. Alerted pt to materials in heart book. Consider low nutrition risk.
[2019-11-26 17:33] VITALS: BP 144/88
--- NOTE | 2019-11-26 18:30 | NUR ---
ASSESSMENT CHARTED - MEDS PER MAY - NO CO'S OF PAIN OR NAUSEA. LINDA DIET AND FLUIDS. ACCUCHECKS COVER WITH INSULIN ORDERED. CHEST TUBE AND PACER WIRES REMOVED THIS AFTERNOON, CHEST XRAY COMPLETED. PT AMBULATED WITH PHYS THERAPY AND CARDIAC REHAB - SEEN BY [facility] THERAPY. UP IN CHAIR. DRESSING C/D/I. NO CO'S AT THE PRESETN TIME.
[2019-11-26 20:04] VITALS: BP 113/57
--- NOTE | 2019-11-27 04:43 | NUR ---
SLEPT PART OF SHIFT. DENIES NEED FOR PAIN MEDICATION. LIVAN DRESSING REMAINS TO STERNAL INCISION. UP AD LEA IN ROOM AND DRIVER WITH SLOW STEADY GAIT. WORKING ON GOALS AND PLAN OF CARE FOR NOC. USING IS AND GETTING TO 6000, PROGRESSING SLOWLY TOWARDS DISCHARGE HOME. CONTINUE TO ASSES CLOSELY.
[2019-11-27 05:08] VITALS: BP 131/76
[2019-11-27 07:30] VITALS: BP 131/69
[2019-11-27 12:25] VITALS: BP 123/81
[2019-11-27 15:55] VITALS: BP 107/73; BP 132/71
--- NOTE | 2019-11-27 17:54 | NUR ---
ASSESSMENT CHARTED. PT ALERT AND ORIENTED. VSS. REPORT HAVING STERNUM PAIN WITH MOVEMENT BUT DENIED THE NEED FOR PAIN MED. AMBULATED NUMEROUS TIMES THIS SHIFT. UP IN THE CHAIR. HAD A SHOWER TODAY. LIVAN DRESSING CHANGED. NSR ON TELE. NO CARDIAC DISTRESS NOTED. WILL CONTINUE TO MONITOR.
[2019-11-27 19:50] VITALS: BP 107/67
--- NOTE | 2019-11-28 03:27 | NUR ---
SLEEPING WITHOUT COMPLAINTS. STATES STERNAL INCISION SORE BUT DOES NOT NEED PAIN MEDICATION. UP AD LEA IN ROOM AND DRIVER WITH STEADY GAIT. WORKING ON GOALS AND PLAN OF CARE FOR NOC. PROGRESSING TOWARDS DISCHARGE GOALS. CONTINUE TO ASSES. PATIENT ANXIOUS TO GO HOME.
[2019-11-28 05:15] VITALS: BP 139/76
[2019-11-28] MEDS ORDERED: LIPITOR40 MG PO (08:09)
[2019-11-28] MEDS ORDERED: BENICAR20 MG PO (08:09)
[2019-11-28] MEDS ORDERED: COREG6.25 MG PO (08:09)
[2019-11-28] MEDS ORDERED: FERREX 150 PLU1 EAC1 PO (08:09)
[2019-11-28] MEDS ORDERED: ASPIR 8181 MG PO (08:09)
[2019-11-28 09:53] VITALS: BP 139/76
--- NOTE | 2019-11-28 10:12 | NUR ---
ASSESSMENT CHARTED. PT ALERT AND ORIENTED. VSS. DENIED HAVING PAIN OR DISCOMFORT. LIVAN DRESSING INTACT. SEEN BY DR. HOPKINS AND DR NICHOLAS. ORDERS GIVEN TO DISCHARGE PT TO HOME. DISCHARGE INSTRUCTIONS GIVEN TO PT. PT VERBERLISED UNDERSTANDING. PT LEFT THE FACILITY ACCOMPANIED BY THE .
== END 2019-11-28 10:17 | disposition home or self-care (01) | DRG 233 ==
LOC: CATH 07:49 → 2N 14:09 → ICU 14:09 → 2N 14:50 → TBA 11-23 07:43 → ICU 11-23 14:15 → 2N 11-25 18:00
PROVIDERS: Physician Assistant; Surgery Vascular Surgery; ADMIT Internal Medicine Cardiovascular Disease; ATTEND Internal Medicine Cardiovascular Disease
PROC: B418YZZ Fluoroscopy of Bilateral Renal Arteries using Other Contrast (ICD-10-PCS; 2019-11-19)
PROC: B211YZZ Fluoroscopy of Multiple Coronary Arteries using Other Contrast (ICD-10-PCS; 2019-11-19)
PROC: B215YZZ Fluoroscopy of Left Heart using Other Contrast (ICD-10-PCS; 2019-11-19)
PROC: B410YZZ Fluoroscopy of Abdominal Aorta using Other Contrast (ICD-10-PCS; 2019-11-19)
PROC: 4A023N8 Measurement of Cardiac Sampling and Pressure, Bilateral, Percutaneous Approach (ICD-10-PCS; 2019-11-19)
PROC: 5A1221Z Performance of Cardiac Output, Continuous (ICD-10-PCS; principal; 2019-11-23)
PROC: 0210099 Bypass Coronary Artery, One Artery from Left Internal Mammary with Autologous Venous Tissue, Open Approach (ICD-10-PCS; principal; 2019-11-23)
PROC: 06BQ4ZZ Excision of Left Saphenous Vein, Percutaneous Endoscopic Approach (ICD-10-PCS; principal; 2019-11-23)
PROC: 30233N1 Transfusion of Nonautologous Red Blood Cells into Peripheral Vein, Percutaneous Approach (ICD-10-PCS; principal; 2019-11-23)
PROC: 5A1935Z Respiratory Ventilation, Less than 24 Consecutive Hours (ICD-10-PCS; principal; 2019-11-23)
PROC: 021209W Bypass Coronary Artery, Three Arteries from Aorta with Autologous Venous Tissue, Open Approach (ICD-10-PCS; principal; 2019-11-23)
DX: I25.10 Atherosclerotic heart disease of native coronary artery without angina pectoris (principal); I50.31 Acute diastolic (congestive) heart failure; D62 Acute posthemorrhagic anemia; E78.00 Pure hypercholesterolemia, unspecified; I11.0 Hypertensive heart disease with heart failure; Z20.828 Contact with and (suspected) exposure to other viral communicable diseases; I08.3 Combined rheumatic disorders of mitral, aortic and tricuspid valves; I25.5 Ischemic cardiomyopathy; E78.5 Hyperlipidemia, unspecified; E11.9 Type 2 diabetes mellitus without complications; Z79.4 Long term (current) use of insulin
CPT/HCPCS: 10078; 10081; 47000; 47001; 47002; 47297; 48888; 50010; 50249; 50409; 50456; 50498; 50668; 51301; 52131; 52259; 52287; 52314; 53327; 53358; 54118; 56455; 56524; 56525; 56526; 56527; 56528; 56531; 56534; 56668; 56719; 56760; 56898; 57093; 57116; 57167; 62110; 62950; 65003; 65020; 65047; 65120; 65135; 83006; 85076

== ENCOUNTER → 2019-12-29 | Outpatient (CLI) | payer OTHER ==
[~2019-12-29] MED LIST changes: +ASPIR 8181 MG PO; +BENICAR20 MG PO; +COREG6.25 MG PO; +FERREX 150 PLU1 EAC1 PO; +LIPITOR40 MG PO
== END ==
LOC: SJCVC 14:26
PROVIDERS: ATTEND Internal Medicine Cardiovascular Disease
DX: R94.31 Abnormal electrocardiogram [ECG] [EKG] (principal); I25.119 Atherosclerotic heart disease of native coronary artery with unspecified angina pectoris; E78.5 Hyperlipidemia, unspecified; I25.5 Ischemic cardiomyopathy; I10 Essential (primary) hypertension; E10.9 Type 1 diabetes mellitus without complications; I35.0 Nonrheumatic aortic (valve) stenosis; Z95.1 Presence of aortocoronary bypass graft; Z79.899 Other long term (current) drug therapy; Z87.891 Personal history of nicotine dependence

== ENCOUNTER → 2020-03-21 | Outpatient (CLI) | payer OTHER | LOC: SJCVCIMAG 09:38 | PROVIDERS: ATTEND Internal Medicine Cardiovascular Disease | DX: I08.8 Other rheumatic multiple valve diseases (principal); R94.31 Abnormal electrocardiogram [ECG] [EKG]; I25.810 Atherosclerosis of coronary artery bypass graft(s) without angina pectoris; I10 Essential (primary) hypertension; I25.5 Ischemic cardiomyopathy; E13.9 Other specified diabetes mellitus without complications; E78.5 Hyperlipidemia, unspecified; Z95.1 Presence of aortocoronary bypass graft; Z79.82 Long term (current) use of aspirin; Z79.4 Long term (current) use of insulin; Z79.899 Other long term (current) drug therapy; Z87.891 Personal history of nicotine dependence ==

== ENCOUNTER → 2020-06-23 | Outpatient (CLI) | payer OTHER | LOC: SJCVCIMAG 09:00 | PROVIDERS: ATTEND Internal Medicine Cardiovascular Disease | DX: R06.00 Dyspnea, unspecified (principal); I25.10 Atherosclerotic heart disease of native coronary artery without angina pectoris; E78.5 Hyperlipidemia, unspecified; I10 Essential (primary) hypertension; R53.83 Other fatigue; Z82.49 Family history of ischemic heart disease and other diseases of the circulatory system; Z95.1 Presence of aortocoronary bypass graft ==

== ENCOUNTER → 2020-10-23 | Outpatient (CLI) | payer OTHER | LOC: SJCVC 08:46 | PROVIDERS: ATTEND Internal Medicine Cardiovascular Disease | DX: I25.119 Atherosclerotic heart disease of native coronary artery with unspecified angina pectoris (principal); I42.9 Cardiomyopathy, unspecified ==

== ENCOUNTER → 2021-03-07 | Outpatient (CLI) | payer OTHER | LOC: SJCVC 13:53 | PROVIDERS: ATTEND Internal Medicine Cardiovascular Disease | DX: I25.119 Atherosclerotic heart disease of native coronary artery with unspecified angina pectoris (principal); I35.0 Nonrheumatic aortic (valve) stenosis; I42.9 Cardiomyopathy, unspecified; E10.9 Type 1 diabetes mellitus without complications; I10 Essential (primary) hypertension; E78.5 Hyperlipidemia, unspecified; Z79.82 Long term (current) use of aspirin; Z79.899 Other long term (current) drug therapy; Z79.4 Long term (current) use of insulin; Z88.8 Allergy status to other drugs, medicaments and biological substances; Z72.89 Other problems related to lifestyle; Z87.891 Personal history of nicotine dependence ==